=== PATIENT | male | born 1970 | race Caucasian/White ===

== ENCOUNTER → 2020-11-21 01:14 | Outpatient (CLI) | payer BC, SELFPAY ==
[2020-11-22 01:36] LABS: SARS-CoV-2 RNA PCR Negative
== END ==
PROVIDERS: PCP Nurse Practitioner Family; Visit Provider Internal Medicine Gastroenterology
DX: Z01.812 Encounter for preprocedural laboratory examination (principal); Z20.822 Contact with and (suspected) exposure to COVID-19
CPT/HCPCS: C9803; U0003; U0005

== ENCOUNTER 2020-11-25 01:37 | Day surgery (SDC) | payer BC, SELFPAY ==
[2020-11-16 14:29] VITALS: BMI 29.6
[2020-11-25 09:33] VITALS: BP 150/93; PULSE 66; RESP 18; TEMP 36.6; O2SAT 100
--- NOTE | 2020-11-25 09:34 | WPDANESEPPF ---
Anes - Initial Pre Proc Eval Procedure: Operation Date: 11/25/20 10:00 Proposed Procedures p Screening Colonoscopy - Alfredo Aldana MD Date/Time: 11/25/20 09:34 Surgeon: Alfredo Aldana MD Pre Op Diagnosis: neoplasm screening Patient Data Age: 50 Gender: M Height: 1.75 m Weight: 91 kg Allergies Allergy/AdvReac Type Severity Reaction Status Date / Time No Known Allergies Allergy Verified 11/25/20 09:32 Home Medications Medication Instructions Recorded Confirmed Type meloxicam 15 mg tablet 15 mg PO DAILY PRN #30 tablet 01/28/20 11/16/20 Rx atorvastatin 10 mg tablet 10 mg PO DAILY #90 tablet 07/30/20 11/16/20 Rx lisinopril 20 mg tablet 20 mg PO DAILY #90 tablet 09/02/20 11/16/20 Rx Patient hx anesthesia problems: none Family hx anesthesia problems: none PMFSH Past Medical History Medical History Abnormal fasting glucose Acute bronchitis Acute non-recurrent maxillary sinusitis BMI 32.0-32.9,adult Colon cancer screening Elevated liver enzymes Encounter for prostate cancer screening Encounter for wellness examination in adult Essential (primary) hypertension Hyperlipidemia Mixed hyperlipidemia Right knee pain Seasonal allergic rhinitis Seborrheic keratosis Surgical History Surgical History (Updated 11/25/20 @ 09:36 by Mustapha Broderick MD) H/O arthroscopic knee surgery History of shoulder surgery Family History Family History Father Pancreatic cancer Social History Social History Smoking status: Never smoker Alcohol intake: current Drinks per week: 6 Alcohol use details: beer Substance use: never Substance use type: does not use Living arrangements: with family Spiritual care concerns: No Anes - Eval Final PreProcedure Day of Procedure 11/25/20 09:34 Patient weight: obese Heart: regular rate and rhythm Lungs: clear to auscultation Airway: Mallampati scale class II Neurological: alert and oriented Last oral intake: >/= 8 hours ASA classification: II Emergent: no Anesthetic plan: proceed Anesthesia type and monitoring: general GIVS and standard monitoring Informed Consent: The patient's anesthetic plan and its attendant risks and benefits were discussed with the patient/family/POA. Questions were solicited and answers provided to the satisfaction of the patient/family/POA.
[2020-11-25] MEDS: LACTATED RINGERS 1,000 ML 150 ML IV CONT (09:59)
--- NOTE | 2020-11-25 10:01 | PM.HPGS ---
History of Present Illness History of Present Illness Consent: Risks, benefits, and alternatives have been discussed and questions answered. Patient agrees to proceed with procedure. Chief complaint: neoplasm screening Narrative: Leonides Pinto is a 50 year old male here for first screening colonoscopy Review of Systems Constitutional: Constitutional: Denies headache(s) and Denies weakness Eyes: Eyes: Denies blurry vision ENT: Reports Normal hearing present, Denies headache(s) and Denies neck pain Cardiovascular: Cardiovascular: Denies chest pain and Denies dyspnea Respiratory: Respiratory: Denies dyspnea Gastrointestinal: Gastrointestinal: Reports no additional gastrointestinal complaints Genitourinary: Genitourinary: Denies dysuria Musculoskeletal: Musculoskeletal: Denies neck pain Integumentary/Breasts: Skin/Breast: Denies dry skin Neurologic: Reports Normal hearing present, Denies headache(s) and Denies weakness Psychiatric: Psychiatric: Denies anxiety Endocrine: Endocrine: Denies change in body appearance Hematologic/Lymphatic: Hematologic/Lymphatic: Denies easy bleeding Allergic/Immunologic: Allergic/Immunologic: Denies urticaria PMFSH Past Medical History Medical History Abnormal fasting glucose Acute bronchitis Acute non-recurrent maxillary sinusitis BMI 32.0-32.9,adult Colon cancer screening Elevated liver enzymes Encounter for prostate cancer screening Encounter for wellness examination in adult Essential (primary) hypertension Hyperlipidemia Mixed hyperlipidemia Right knee pain Seasonal allergic rhinitis Seborrheic keratosis Surgical History Surgical History (Updated 11/25/20 @ 09:36 by Mustapha Broderick MD) H/O arthroscopic knee surgery History of shoulder surgery Family History Family History Father Pancreatic cancer Social History Social History Smoking status: Never smoker Alcohol intake: current Drinks per week: 6 Alcohol use details: beer Substance use: never Substance use type: does not use Living arrangements: with family Spiritual care concerns: No Meds Home Medications and Allergies Home Medications Medication Instructions Recorded Confirmed Type meloxicam 15 mg tablet 15 mg PO DAILY PRN #30 tablet 01/28/20 11/16/20 Rx atorvastatin 10 mg tablet 10 mg PO DAILY #90 tablet 07/30/20 11/16/20 Rx lisinopril 20 mg tablet 20 mg PO DAILY #90 tablet 09/02/20 11/16/20 Rx Allergies Allergy/AdvReac Type Severity Reaction Status Date / Time No Known Allergies Allergy Verified 11/25/20 09:32 Vital Signs Vital Signs - 24 hr 11/25/20 09:33 Temperature 97.9 F Pulse Rate 66 Respiratory Rate 18 Blood Pressure 150/93 H Pulse Oximetry 100 Exam Const: General: comfortable and no acute distress HENMT: General nose exam: Normal nares present Eyes: General: appearance normal, both eyes and all related structures Neck: Neck: no JVD Resp: Auscultation: clear to auscultation bilaterally Cardio: Rate: regular rate Rhythm: regular rhythm GI: Inspection: non-distended GI Palp: Yes Soft to palpation Skin: General skin exam: normal color Neuro: General: gait normal Speech: normal speech Extrem: General: normal to inspection Psych: Mental Status: mental status grossly normal Assessment and Plan Assessment and plan (1) Colon cancer screening: Code(s): Z12.11 - Encounter for screening for malignant neoplasm of colon Status: Acute Assessment and Plan: colonoscopy
[2020-11-25 10:21] VITALS: BP 116/75; PULSE 60; RESP 16; O2SAT 94
[2020-11-25 10:31] VITALS: BP 109/73; PULSE 46; RESP 14; O2SAT 93
[2020-11-25 10:41] VITALS: BP 119/71; PULSE 59; RESP 17; O2SAT 97
== END 2020-11-25 11:02 | disposition home or self-care (01) ==
PROVIDERS: PCP Nurse Practitioner Family; Visit Provider Internal Medicine Gastroenterology
PROC: 0DJD8ZZ Inspection of Lower Intestinal Tract, Via Natural or Artificial Opening Endoscopic (ICD-10-PCS; CPT 45378; principal; 2020-11-25 10:00)
DX: Z12.11 Encounter for screening for malignant neoplasm of colon (principal); K64.8 Other hemorrhoids; K63.5 Polyp of colon; D12.3 Benign neoplasm of transverse colon; E78.2 Mixed hyperlipidemia; E66.9 Obesity, unspecified; Z68.31 Body mass index [BMI] 31.0-31.9, adult
CPT/HCPCS: 45385; 88305; J2405; J2704; J7120

== ENCOUNTER → 2021-06-02 15:39 | Outpatient (CLI) | payer BC, SELFPAY ==
--- NOTE | ~2021-06-02 | XR_ITS ---
XR knee RT min 4V 06/02/2021 15:54 Indication: Right knee pain Procedure: 4 views right knee Comparison: No prior studies for comparison. Findings: There is mild osteoarthritis of the right knee, most advanced in the medial compartment. No fracture, subluxation or dislocation. No significant joint effusion. No foreign body. Impression: 1: Mild osteoarthritis of the right knee. Reviewed, dictated and finalized at location A. [employer] Impression: 1: Mild osteoarthritis of the right knee.
== END ==
PROVIDERS: PCP Family Medicine; Visit Provider Family Medicine
DX: M25.561 Pain in right knee (principal); G89.29 Other chronic pain; M17.11 Unilateral primary osteoarthritis, right knee
CPT/HCPCS: 73564